=== PATIENT | male | born 1980 | race Caucasian/White ===

== ENCOUNTER 2024-04-14 04:55 | Observation (INO) ==
[2024-04-14 05:10] LABS: ABS Eosinophils 0.2 10^3/uL (0.0-0.5); ABS Lymphocytes 0.8 10^3/uL (1.0-4.8); ABS Monocytes 0.4 10^3/uL (0.0-1.1); ABS Neutrophils 5.4 10^3/uL (1.5-7.6); ABS Nucleated RBC 0.02 10^3/ul; Eosinophil % 3.6 %; Hematocrit 48.9 % (38-53); Hemoglobin 16.4 g/dL (13.2-16.3); Mean Corpuscular Hemoglobin 30.2 pg (27-33); Mean Corpuscular Hgb Conc 33.6 g/dL (31-36); Mean Corpuscular Volume 89.8 fL (80-97); Mean Platelet Volume 9.8 fL (7.5-11.2); Nucleated Red Blood Cells % 0.2 %/100WBC (0.0-0.8); Platelet Count 181 10^3/uL (150-450); Red Blood Count 5.45 10^6/uL (4.06-5.63); Red Cell Distribution Width 13.7 % (12-17)
[2024-04-14 05:17] LABS: INR 1.12 (0.83-1.13)
[2024-04-14 05:50] LABS: Albumin/Globulin Ratio 1.8 (1-3); Calcium 8.6 mg/dL (8.6-10.3); Creatinine, Serum 0.58 mg/dL (0.67-1.17); Globulin 2.2 g/dL (2-4); Potassium 3.9 mmol/L (3.5-5.0); Total Bilirubin 1.5 mg/dL (0.2-1.0); Total Protein 6.2 g/dL (6.4-8.9); eGFR CKD-EPI 124.9 (>60)
[2024-04-14 06:33] LABS: High Sensitivity Troponin 1 Hr 8 pg/mL (<20)
[2024-04-14] MEDS ORDERED: Regadenoson 0.4 MG/5 ML SYRINGE ONE (09:12)
[2024-04-14] MEDS ORDERED: Aminophylline 25 MG/ML VIAL ONE (09:12)
[2024-04-14] MEDS ORDERED: Dextrose 50% Syringe 50 ml 25 GM/50 ML SYRINGE IV PUSH PRN (10:01)
[2024-04-14] MEDS: Enoxaparin 40 MG/0.4 ML SYR SUBCUT SCH ×2 (11:23→12:24)
[2024-04-14] MEDS: Ondansetron ODT 4 mg TAB 4 MG TAB SL ONE (20:59)
[2024-04-15 05:58] LABS: ABS Eosinophils 0.6 10^3/uL (0.0-0.5); ABS Monocytes 0.6 10^3/uL (0.0-1.1); ABS Neutrophils 2.5 10^3/uL (1.5-7.6); ABS Nucleated RBC 0.02 10^3/ul; Eosinophil % 12.3 %; Hematocrit 45.3 % (38-53); Hemoglobin 15.4 g/dL (13.2-16.3); Lymphocyte % 21.3 %; Mean Corpuscular Hemoglobin 30.3 pg (27-33); Mean Corpuscular Hgb Conc 33.9 g/dL (31-36); Mean Corpuscular Volume 89.2 fL (80-97); Mean Platelet Volume 10.3 fL (7.5-11.2); Nucleated Red Blood Cells % 0.4 %/100WBC (0.0-0.8); Platelet Count 160 10^3/uL (150-450); Red Blood Count 5.08 10^6/uL (4.06-5.63); Red Cell Distribution Width 13.6 % (12-17); White Blood Count 4.7 10^3/uL (3.6-10.2)
[2024-04-15 06:16] LABS: Albumin 3.6 g/dL (3.2-5.2); Albumin/Globulin Ratio 1.7 (1-3); Calcium 8.6 mg/dL (8.6-10.3); Creatinine, Serum 0.53 mg/dL (0.67-1.17); Globulin 2.1 g/dL (2-4); Magnesium 1.8 mg/dL (1.9-2.7); Potassium 3.9 mmol/L (3.5-5.0); Total Bilirubin 0.7 mg/dL (0.2-1.0); Total Protein 5.7 g/dL (6.4-8.9); eGFR CKD-EPI 128.3 (>60)
[2024-04-15] MEDS: Magnesium Sulfate 2 gm BAG 2 GM/50 ML BAG IVPB ONE (11:50)
[2024-04-15 13:52] LABS: High Sensitivity Troponin 1 Hr 5 pg/mL (<20)
[2024-04-15 14:02] VITALS: BP 132/93
== END 2024-04-15 15:27 | disposition home or self-care (01) ==
LOC: EDHOLD 04:55 → ED 04:55 → SUATTDRO 09:11 → MEDTELE 12:16
PROVIDERS: ADMIT Hospitalist; ATTEND Hospitalist